=== PATIENT | female | born 1985 | race Caucasian/White ===

== ENCOUNTER 2023-07-23 06:52 | Day surgery (SDC) | payer OTHER, SELFPAY ==
[2023-07-22 16:07] VITALS: BMI 24.4
[2023-07-23 07:05] VITALS: BP 104/69; PULSE 62; RESP 16; TEMP 36.3; O2SAT 98; BMI 19.0
[2023-07-23] MEDS: LACTATED RINGERS 1,000 ML 42 ML IV (07:14)
[2023-07-23] MEDS: SCOPOLAMINE 1 PATCH TOP (07:42)
--- NOTE | 2023-07-23 07:44 | PM.PREOP ---
Pre-operative Note COVID-19 COVID-19 status: Not tested Interval Note History & Physical reviewed/Exam performed by Physician: Yes Changes to H&P: No
[2023-07-23] MEDS: CEFAZOLIN 2 GM/100 ML PREMIX 100 ML IV (07:50)
[2023-07-23] MEDS: ACETAMINOPHEN IV 1,000 MG/100 ML VIAL 400 MG IV (08:00)
--- NOTE | 2023-07-23 08:07 | SUR.OPER ---
Lithotomy on ESWL table, head on pillow, arms padded and tucked. Legs secured in padded ESWL stirrups.
[2023-07-23 08:37] VITALS: BP 113/68; PULSE 84; RESP 16; TEMP 36.8; O2SAT 98
--- NOTE | 2023-07-23 08:40 | PM.OP.1 ---
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 She presents this time for treatment of that stone. She has no stones on the right side she did have a very punctate stone in the lower portion of the left kidney this does not bear treatment at this time. Surgeon: Terrell Gooden Click Yes if Unassisted: Yes Anesthesia Type: General Operative Notes Findings: External genitalia are normal, urethral meatus is normal, urethra is normal along its length. The right ureteral orifices in normal position with clear efflux. The left ureteral orifice is laterally displaced but does appear well coapted. Within the bladder the mucosa is normal without lesion. There were no stones within the bladder no evidence of fistula or other abnormality. The stone was noted in the UPJ/renal pelvis. With placement of the stent it appeared to perhaps move further back into the renal pelvis. At 12:00 p.m. and 50 shocks the shockwave head was pulled out and fluoroscopy performed revealing the stone to appeared to be completely fragmented. A 7 [place] by multi length stent was left in good position in the left collecting system without a string. There were no other abnormalities Closure Type: not applicable Specimen(s): none sent Prosthetic devices, grafts, tissues, transplants, or devices: None Applied: other (7 [place] by multi length stent left collecting system no string) Estimated Blood Loss (mL): 0 Blood products transfused: none Procedure in detail: Procedure in detail: After informed consent was obtained, the patient was identified and brought to the operating room where she was placed in a supine position on the Lithotripter. Once there she had anesthesia induced and maintained. Ensuring an adequate level of anesthesia the patient was transitioned to the lithotomy position where she was prepped, draped, prepared for Transurethral procedure. Ensuring an adequate level of anesthesia, after prepping, draping in preparation and time out a 22 [place] cystoscope was passed through the urethra and into the bladder where cystoscopy was performed. The left ureteral orifice was identified and a hybrid guidewire was passed up into the collecting system under fluoroscopic visualization. The stent was then passed over the wire and a coaxial fashion positioned in the renal pelvis under fluoroscopic visualization of the bladder under direct vision. The wire was removed. Grasping forceps was inserted and the nylon harness removed leaving the stent in good position. The stent being in good position the stone was targeted via the imaging system and shockwave delivered at level 7 for a total of 12 150 shocks. With periodic reimaging and re localization to ensure management energy delivered to the stone. At 12:00 p.m. and 50 shocks it appeared that the stone was completely fragmented the shockwave head was rotated out fluoroscopy performed confirming that the stone had been completely pulverized. At this point the patient was awakened having tolerated the procedure well to be transferred to the postanesthesia care unit for recovery there were no complications. The patient will follow up in my office in approximately 7 days with a KUB given the apparent excellent fragmentation of the stone. Complications: none Post-operative Condition: stable Disposition: PACU Plan for aftercare: Follow-up my office approximately 7 days with a KUB.
[2023-07-23 08:45] VITALS: BP 98/69; PULSE 68; RESP 16; O2SAT 98
[2023-07-23 08:50] VITALS: BP 104/65; PULSE 60; RESP 16; O2SAT 100
[2023-07-23 08:57] VITALS: BP 110/70; PULSE 65; RESP 16; TEMP 36.6; O2SAT 100
[2023-07-23 09:15] VITALS: BP 110/55; PULSE 65; RESP 15; TEMP 36.3; O2SAT 100
[2023-07-23] MEDS: ONDANSETRON 4 MG/2 ML INJ IV (09:22)
== END 2023-07-23 09:30 | disposition home or self-care (01) ==
PROVIDERS: Referring Provider Urology; Visit Provider Urology
PROC: (CPT 50590; principal; 2023-07-23 07:45)
PROC: (CPT 50590; 2023-07-23 07:45)
DX: N23 Unspecified renal colic (principal); N20.0 Calculus of kidney; Z87.448 Personal history of other diseases of urinary system; Z87.440 Personal history of urinary (tract) infections; Z39.1 Encounter for care and examination of lactating mother
CPT/HCPCS: 50590; 52332; J0131; J0690; J1100; J1885; J2250; J2405; J2704; J3010

== ENCOUNTER → 2023-08-12 09:53 | Outpatient (CLI) | payer OTHER, SELFPAY ==
--- NOTE | 2023-08-12 09:55 | DI.RAD.S_ITS ---
PROCEDURE: XR KUB INDICATIONS: Kidney stones TECHNIQUE: One view of the abdomen acquired. COMPARISON: Outside Facility, RG, CT KUB, 07/20/2023, 21:58. FINDINGS: Surgical changes and devices: None. Bowel: Bowel gas pattern is normal. Soft tissues: Left-sided nephroureteral stent present. The previously visualized proximal left ureter stone is not visualized. Nonobstructing stones measuring up to 1 centimeter in the inferior calyx of the left kidney. IUD projects over the pelvic inlet. Bones: No suspicious bony lesions. IMPRESSION: Left-sided nephroureteral stent present. The previously visualized proximal left ureter stone is not visualized. Nonobstructing stones measuring up to 1 centimeter in the inferior calyx of the left kidney. Dictated by: Jamie Nelson M.D. on 08/12/2023 at 11:27 Approved by: Jamie Nelson M.D. on 08/12/2023 at 11:28
== END ==
PROVIDERS: Referring Provider Urology; Visit Provider Urology
DX: N20.0 Calculus of kidney (principal); Z96.0 Presence of urogenital implants; Z87.442 Personal history of urinary calculi; Z87.440 Personal history of urinary (tract) infections
CPT/HCPCS: 52310; 74018; 81002; 82365

== ENCOUNTER → 2023-08-12 10:25 | Outpatient (CLI) | payer OTHER, SELFPAY ==
[2023-08-24 22:38] LABS: Ca oxalate monohydr 5 % (.); Hydroxyapatite 95 % (.)
== END ==
PROVIDERS: Visit Provider Urology
DX: Z87.442 Personal history of urinary calculi (principal)
CPT/HCPCS: 82365